=== PATIENT | male | born 1965 | race African-American/Black ===

== ENCOUNTER 2016-06-27 11:59 | Emergency (ER) | payer SELFPAY ==
[~2016-06-27] VITALS: Wt 89.0 kg
[~2016-06-27 11:59] MED LIST: BEN50 PO; CITA20TA11 PO; DIAZ10TA4 PO; DOCU-144 PO; HYDR2TAB15 PO; LACT10SO53 PO; LORA-408 PO; MULT1TAB59 PO; OXYC30TA PO; QUET100T PO; TEMA30CA6 PO
== END 2016-06-28 07:01 | disposition left against medical advice (07) ==
LOC: FTE 11:59
DX: Z53.21 Procedure and treatment not carried out due to patient leaving prior to being seen by health care provider (principal)

== ENCOUNTER 2017-02-19 11:33 | Emergency (ER) | payer MEDICARE ==
[~2017-02-19] VITALS: Ht 188 cm; Wt 140.0 kg
[~2017-02-19 11:33] MED LIST changes: -HYDR2TAB15 PO; +HYDR2TAB36 PO
[2017-02-19 11:51] VITALS: Ht 188 cm; Wt 140.0 kg
[2017-02-19] MEDS ORDERED: HYDROCODONE/APAP (10/325) TAB PO ONE (12:00)
[2017-02-19 13:40] VITALS: BP 138/68; PULSE 71; RESP 18; TEMP 98
--- NOTE | 2017-02-19 14:30 | ERD ---
ER Documentation Chief Complaint Date/Time DATE: 02/19/17 TIME: 14:28 Chief Complaint BERRIOS HX OF MIGRANES REQUESTING DILAUDID HPI Patient is a 51-year-old male with migraines and hip pain who presents with pain. He was brought in by ambulance. He says that he has "excruciating migraines". He has a history of migraine headaches for the past 30 years. He has bilateral hip pain. He is in a lot of pain. It started a few days ago. He tried Motrin, ibuprofen, and Tylenol. He denies fevers. He said the pain comes and goes. Upon review of old medical records he has multiple visits to the ER for various complaints. Review of the emergency department information exchange system shows visits to 5 separate emergency departments. ROS All systems reviewed and are negative except as per history of present illness. Medications Home Meds Active Scripts Oxycodone Hcl* (IR) (Oxycodone Hcl*) 30 Mg Tablet, 30 MG PO Qday Y for PAIN for 4 Days, #4 TAB Prov:YT HEMPHILL MD 11/29/15 Reported Medications Diazepam* (Diazepam*) 10 Mg Tablet, 10 MG PO TID, TAB 11/18/14 Diphenhydramine Hcl* (Benadryl*) 50 Mg Cap, 50 MG PO DAILY NEEDED Y for ITCHING, CAP 11/18/14 Temazepam* (Restoril*) 30 Mg Capsule, 30 MG PO HS Y for INSOMNIA, CAP 11/18/14 Hydromorphone Hcl* (Dilaudid*) 2 Mg Tablet, 2 MG PO Q3H Y for PAIN, TAB 11/18/14 Citalopram Hydrobromide* (Celexa*) 20 Mg Tablet, 60 MG PO DAILY, TAB 11/18/14 Quetiapine Fumarate* (Seroquel*) 100 Mg Tablet, 500 MG PO QHS, TAB 11/18/14 Lactulose (Lactulose) 10 G/15 Ml Solution, 30 ML PO DAILY 07/09/11 Docusate Sodium* (Colace*) 100 Mg Capsule, 100 MG PO BID 07/09/11 Multivitamins* (Multivitamins*) 1 Tab Tablet, 1 TAB PO DAILY 07/09/11 Lorazepam (Ativan) 1 Mg Tablet, 1 TAB PO Q4HRS PRN 07/09/11 Allergies Allergies: Coded Allergies: Penicillins (Verified Allergy, Severe, STOPS BREATHING, 11/18/14) ketorolac (Verified Allergy, Intermediate, WHEEZING, 11/18/14) metoclopramide (Verified Allergy, Intermediate, FACIAL SEIZURE, 11/18/14) prochlorperazine (Verified Allergy, Intermediate, WHEEZING, 11/18/14) PMhx/Soc Anesthesia Reaction: No Hx Neurological Disorder: Yes (MIGRAINES) Hx Respiratory Disorders: No Hx Cardiac Disorders: Yes (HTN) Hx Alcohol Use: No Hx Substance Use: No Hx Tobacco Use: No Smoking Status: Unknown if ever smoked FmHx Family History: No diabetes Physical Exam Vitals Vital Signs Date Time Temp Pulse Resp B/P Pulse Ox O2 Delivery O2 Flow Rate FiO2 02/19/17 11:51 98.6 84 18 135/89 97 Physical Exam Const: No acute distress Head: Atraumatic Eyes: Left eye gazes to the left but patient says this is chronic for him ENT: Normal External Ears, Nose and Mouth. Neck: Full range of motion..~ No meningismus. Resp: Clear to auscultation bilaterally Cardio: Regular rate and rhythm, no murmurs Abd: Soft, non tender, non distended. Normal bowel sounds Skin: No petechiae or rashes Back: No midline or flank tenderness Ext: No cyanosis, or edema Neur: Awake and alert Psych: Normal Mood and Affect Results 24 hrs Current Medications Medications (Trade) Dose Ordered Sig/Fredi Route PRN Reason Start Time Stop Time Status Last Admin Dose Admin Acetaminophen/ Hydrocodone Bitart ([place] (10325)) 1 tab ONCE ONCE PO 02/19/17 12:00 02/19/17 12:01 DC 02/19/17 12:16 Procedures/MDM Patient is a 51-year-old male with migraine headaches and hip pain who presents with acute pain. He has a history of chronic pain however but does not have a pain management doctor. He is requesting Dilaudid. He says that he is allergic to Toradol. I believe there is an element of drug-seeking behavior here. I told him that I would give him 1 dose of [place] by mouth but that we could not give him any IV or IM medications given our chronic pain policy here at [facility]. The patient will also not be given any narcotic or controlled substance prescriptions. He will be referred to the chronic pain management committee at [facility]. At this point I doubt intracranial hemorrhage or mass. I doubt meningitis. He has no trauma and I doubt skull fracture or hip fracture. Departure Diagnosis: Primary Impression: Headache Headache type: unspecified Headache chronicity pattern: acute headache Intractability: not intractable Qualified Code: R51 - Acute nonintractable headache, unspecified headache type Additional Impression: Chronic pain Chronic pain type: other chronic pain Qualified Code: G89.29 - Other chronic pain Condition: Fair Patient Instructions: Self-Care for Headaches, Chronic Pain Referrals: ADAM DOZIER Additional Instructions: SPECIALIST: YOU HAVE A MEDICAL CONDITION WHICH REQUIRES YOU TO SEE A SPECIALIST WITHIN THE NEXT 1-2 DAYS. PLEASE FOLLOW UP WITH YOUR PRIMARY PHYSICIAN FOR REFFERAL.IF YOU DO NOT HAVE A PRIMARY CARE PHYSICIAN AND/OR YOU CAN NOT AFFORD TO SEE A PHYSICIAN THE FOLLOWING RESOURCES HAVE BEEN SUPPLIED TO YOU. IT IS YOUR RESPONSIBILITY TO BE SEEN BY THE SPECIALIST SHEILA HOOPER MD Feb 19, 2017 14:30
== END 2017-02-19 13:40 | disposition home or self-care (01) ==
LOC: E/R 11:33
DX: R51 Headache (principal); G89.29 Other chronic pain; R40.2142 Coma scale, eyes open, spontaneous, at arrival to emergency department; R40.2252 Coma scale, best verbal response, oriented, at arrival to emergency department; R40.2362 Coma scale, best motor response, obeys commands, at arrival to emergency department; I10 Essential (primary) hypertension
CPT/HCPCS: 99283

== ENCOUNTER 2017-02-28 12:49 | Emergency (ER) | payer MEDICARE ==
[~2017-02-28] VITALS: Ht 190.5 cm; Wt 102.0 kg
[2017-02-28 12:52] VITALS: Ht 190.5 cm; Wt 102.0 kg
[2017-02-28] MEDS ORDERED: HYDROCODONE/APAP (10/325) TAB PO ONE (13:30)
--- NOTE | 2017-02-28 13:55 | ERD ---
ER Documentation Chief Complaint Date/Time DATE: 02/28/17 TIME: 13:53 Chief Complaint left hip pain, migraine headaches - legally blind HPI Patient is a 51-year-old male with chronic pain who presents with headache. The patient was brought in by ambulance. He is complaining of a migraine headache for the past 2 days. He said that he has had bilateral hip pain as well for months. He has had x-rays of the hips which were negative. He tried ibuprofen for pain. Upon review of old medical records the patient has multiple visits to the ER for pain complaints. Review of the emergency department information exchange system shows visits to 5 separate emergency departments. He does have a primary doctor but no pain management doctor at this time. ROS All systems reviewed and are negative except as per history of present illness. Medications Home Meds Active Scripts Oxycodone Hcl* (IR) (Oxycodone Hcl*) 30 Mg Tablet, 30 MG PO Qday Y for PAIN for 4 Days, #4 TAB Prov:TY HEMPHILL MD 11/29/15 Reported Medications Diazepam* (Diazepam*) 10 Mg Tablet, 10 MG PO TID, TAB 11/18/14 Diphenhydramine Hcl* (Benadryl*) 50 Mg Cap, 50 MG PO DAILY NEEDED Y for ITCHING, CAP 11/18/14 Temazepam* (Restoril*) 30 Mg Capsule, 30 MG PO HS Y for INSOMNIA, CAP 11/18/14 Hydromorphone Hcl* (Dilaudid*) 2 Mg Tablet, 2 MG PO Q3H Y for PAIN, TAB 11/18/14 Citalopram Hydrobromide* (Celexa*) 20 Mg Tablet, 60 MG PO DAILY, TAB 11/18/14 Quetiapine Fumarate* (Seroquel*) 100 Mg Tablet, 500 MG PO QHS, TAB 11/18/14 Lactulose (Lactulose) 10 G/15 Ml Solution, 30 ML PO DAILY 07/09/11 Docusate Sodium* (Colace*) 100 Mg Capsule, 100 MG PO BID 07/09/11 Multivitamins* (Multivitamins*) 1 Tab Tablet, 1 TAB PO DAILY 07/09/11 Lorazepam (Ativan) 1 Mg Tablet, 1 TAB PO Q4HRS PRN 07/09/11 Allergies Allergies: Coded Allergies: Penicillins (Verified Allergy, Severe, STOPS BREATHING, 11/18/14) ketorolac (Verified Allergy, Intermediate, WHEEZING, 11/18/14) metoclopramide (Verified Allergy, Intermediate, FACIAL SEIZURE, 11/18/14) prochlorperazine (Verified Allergy, Intermediate, WHEEZING, 11/18/14) PMhx/Soc Anesthesia Reaction: No Hx Neurological Disorder: Yes (MIGRAINES) Hx Respiratory Disorders: No Hx Cardiac Disorders: Yes (HTN) Hx Alcohol Use: No Hx Substance Use: No Hx Tobacco Use: No FmHx Family History: No diabetes Physical Exam Vitals Vital Signs Date Time Temp Pulse Resp B/P Pulse Ox O2 Delivery O2 Flow Rate FiO2 02/28/17 12:52 98.4 64 19 132/79 97 Physical Exam Const: No acute distress Head: Atraumatic Eyes: Normal Conjunctiva ENT: Normal External Ears, Nose and Mouth. Neck: Full range of motion..~ No meningismus. Resp: Clear to auscultation bilaterally Cardio: Regular rate and rhythm, no murmurs Abd: Soft, non tender, non distended. Normal bowel sounds Skin: No petechiae or rashes Back: No midline or flank tenderness Ext: No cyanosis, or edema Neur: Awake and alert, legally blind Psych: Normal Mood and Affect Results 24 hrs Current Medications Medications (Trade) Dose Ordered Sig/Fredi Route PRN Reason Start Time Stop Time Status Last Admin Dose Admin Acetaminophen/ Hydrocodone Bitart ([place] (10/325)) 1 tab ONCE ONCE PO 02/28/17 13:30 02/28/17 13:31 DC 02/28/17 13:22 Procedures/MDM Patient is a 51-year-old male with chronic pain who presents with pain. He has headache and bilateral hip pain. These were the same complaints that I saw him for recently. He has multiple visits to the ER for pain complaints and he has visits to 5 separate emergency departments. I do believe there is an element of pain seeking behavior. He said "I just need my pain shot". I told him that we will not give pain medication IV or intramuscular here per our chronic pain policy. He will be given 1 dose of [place] and will be discharged. He can return for any worsening symptoms. I would not give her any prescriptions for controlled substances. Departure Diagnosis: Primary Impression: Chronic pain Chronic pain type: other chronic pain Qualified Code: G89.29 - Other chronic pain Condition: Fair Patient Instructions: Chronic Pain Referrals: ADAM DOZIER Additional Instructions: SPECIALIST: YOU HAVE A MEDICAL CONDITION WHICH REQUIRES YOU TO SEE A SPECIALIST WITHIN THE NEXT 1-2 DAYS. PLEASE FOLLOW UP WITH YOUR PRIMARY PHYSICIAN FOR REFFERAL.IF YOU DO NOT HAVE A PRIMARY CARE PHYSICIAN AND/OR YOU CAN NOT AFFORD TO SEE A PHYSICIAN THE FOLLOWING RESOURCES HAVE BEEN SUPPLIED TO YOU. IT IS YOUR RESPONSIBILITY TO BE SEEN BY THE SPECIALIST SHEILA HOOPER MD Feb 28, 2017 13:55
[2017-02-28 16:15] VITALS: BP 128/78; PULSE 75; RESP 17
== END 2017-02-28 16:15 | disposition home or self-care (01) ==
LOC: E/R 12:49
DX: R51 Headache (principal); G89.29 Other chronic pain; I10 Essential (primary) hypertension
CPT/HCPCS: 99283

== ENCOUNTER 2017-03-13 13:03 | Emergency (ER) | payer MEDICARE, MEDICAID ==
[~2017-03-13] VITALS: Ht 190.5 cm; Wt 112.0 kg
[2017-03-13 13:28] VITALS: Ht 190.5 cm; Wt 112.0 kg
--- NOTE | 2017-03-13 15:31 | ERD ---
ER Documentation Chief Complaint Chief Complaint BILATERAL HIP PAIN, HEADACHE, REQUESTING PAIN MEDICATION HPI This 51-year-old male came in by 911 transfer saying that he wanted a refill of narcotic pain medication. He states that he does not need a refill of [place] because it is too early to get [place], but says that what I can do for him is refill his OxyContin and him his MS Contin. Denies where his pain is he says he gets pain in both of his hips as well as his head which is been going on for years and has a chronic pain.. He has had no recent trauma. ROS All systems reviewed and are negative except as per history of present illness. Medications Home Meds Active Scripts Oxycodone Hcl* (IR) (Oxycodone Hcl*) 30 Mg Tablet, 30 MG PO Qday Y for PAIN for 4 Days, #4 TAB Prov:TY HEMPHILL MD 11/29/15 Reported Medications Diazepam* (Diazepam*) 10 Mg Tablet, 10 MG PO TID, TAB 11/18/14 Diphenhydramine Hcl* (Benadryl*) 50 Mg Cap, 50 MG PO DAILY NEEDED Y for ITCHING, CAP 11/18/14 Temazepam* (Restoril*) 30 Mg Capsule, 30 MG PO HS Y for INSOMNIA, CAP 11/18/14 Hydromorphone Hcl* (Dilaudid*) 2 Mg Tablet, 2 MG PO Q3H Y for PAIN, TAB 11/18/14 Citalopram Hydrobromide* (Celexa*) 20 Mg Tablet, 60 MG PO DAILY, TAB 11/18/14 Quetiapine Fumarate* (Seroquel*) 100 Mg Tablet, 500 MG PO QHS, TAB 11/18/14 Lactulose (Lactulose) 10 G/15 Ml Solution, 30 ML PO DAILY 07/09/11 Docusate Sodium* (Colace*) 100 Mg Capsule, 100 MG PO BID 07/09/11 Multivitamins* (Multivitamins*) 1 Tab Tablet, 1 TAB PO DAILY 07/09/11 Lorazepam (Ativan) 1 Mg Tablet, 1 TAB PO Q4HRS PRN 07/09/11 Allergies Allergies: Coded Allergies: Penicillins (Verified Allergy, Severe, STOPS BREATHING, 11/18/14) ketorolac (Verified Allergy, Intermediate, WHEEZING, 11/18/14) metoclopramide (Verified Allergy, Intermediate, FACIAL SEIZURE, 11/18/14) prochlorperazine (Verified Allergy, Intermediate, WHEEZING, 11/18/14) PMhx/Soc Anesthesia Reaction: No Hx Neurological Disorder: Yes (MIGRAINES) Hx Respiratory Disorders: No Hx Cardiac Disorders: Yes (HTN) Hx Psychiatric Problems: Yes (SCHIZOPHRENIA) Hx Alcohol Use: No Hx Substance Use: No Hx Tobacco Use: No Smoking Status: Never smoker Physical Exam Vitals Vital Signs Date Time Temp Pulse Resp B/P Pulse Ox O2 Delivery O2 Flow Rate FiO2 03/13/17 13:28 98.1 106 18 133/89 97 Physical Exam Const: [] Distress, pleasant, smiling Head: Atraumatic Eyes: Normal Conjunctiva ENT: Normal External Ears, Nose and Mouth. Neck: Full range of motion pain. Skin: No petechiae or rashes Ext: No cyanosis, or edema Neur: Awake and alert 3, no focal deficits. Psych: Normal Mood and Affect Procedures/MDM Drug-seeking behavior and inappropriate use of EMS. Patient is showing no signs of distress whatsoever is requesting IV pain medication here as well as the strongest possible p.o. narcotics as prescription refill. Informed him that he needs to obtain these type of refills from his physician and we will not supply OxyContin or MS Contin from the emergency room. Informed her that I would not refill these and asked if he can at least get a pain shot. I have very low suspicion of the patient's chronic pain has become any sort of serious acute injury. Discharging with instructions to see his primary care doctor tomorrow and called today to try to get an appointment. Stable vital signs. Departure Diagnosis: Primary Impression: Drug-seeking behavior Additional Impressions: Encounter for medication refill Chronic pain Condition: Stable Patient Instructions: Taking Medication Safely, When to Use the Emergency Department (ED) Additional Instructions: Call your primary care doctor TOMORROW for a SAME-DAY APPOINTMENT.Tell the national secretary that you were referred from this facility.Call again if your condition worsens before your appointment time. DEBORAH MORSE DO Mar 13, 2017 15:31
== END 2017-03-13 16:02 | disposition home or self-care (01) ==
LOC: FTE 13:03
DX: G89.29 Other chronic pain (principal); I10 Essential (primary) hypertension; M25.552 Pain in left hip; M25.551 Pain in right hip; Z72.89 Other problems related to lifestyle; Z76.0 Encounter for issue of repeat prescription
CPT/HCPCS: 99283

== ENCOUNTER 2017-12-30 15:10 | Emergency (ER) | END 2017-12-30 16:21 | disposition home or self-care (01) ==

== ENCOUNTER 2019-01-13 12:36 | Emergency (ER) | payer MEDICARE, OTHER ==
[~2019-01-13] VITALS: Ht 180.3 cm; Wt 81.8 kg
[2019-01-13 12:38] VITALS: BP 130/83; PULSE 87; RESP 16; Ht 180.3 cm; Wt 81.8 kg
== END 2019-01-13 15:24 | disposition left against medical advice (07) ==
LOC: FTE 12:36
DX: Z53.21 Procedure and treatment not carried out due to patient leaving prior to being seen by health care provider (principal)